=== PATIENT | male | born 1995 | race Caucasian/White ===

== ENCOUNTER 2020-10-18 22:20 | Inpatient (IN) | payer OTHER ==
[~2020-10-18] VITALS: Ht 182.9 cm; Wt 56.0 kg
[2020-10-18 22:37] VITALS: BP 114/78
[2020-10-19] VITALS (7 sets, daily range): BP systolic 100–113; BP diastolic 53–71
[2020-10-19 00:33] LABS: ABSOLUTE BASOPHILS 0.1 thou/uL (0.0-0.2); ABSOLUTE LYMPHOCYTES 2.1 thou/uL (0.8-5.3); ABSOLUTE MONOCYTES 0.9 thou/uL (0.0-1.2); ABSOLUTE NEUTROPHILS 12.9 thou/uL (1.6-8.1); BASOPHILS 0.5 %; EOSINOPHILS 0.1 %; HEMATOCRIT 30.4 % (42.0-52.0); HEMOGLOBIN 9.2 gm/dL (14.0-18.0); LYMPHOCYTES 13.2 %; MCH 20.4 pg (26.0-34.0); MCHC 30.1 g/dL (28.0-37.0); MCV 67.6 fL (80.0-100.0); MONOCYTES 5.7 %; MPV 6.9 fl. (7.2-11.1); NUCLEATED RBCS 0 /100WBC; POLYS 80.5 %; RBC 4.49 mil/uL (4.50-6.00); RDW-CV 19.5 % (10.5-14.5)
[2020-10-19 00:37] LABS: CALCIUM 10.1 mg/dL (8.5-10.1); CREATININE 0.9 mg/dL (0.6-1.3); POTASSIUM 3.8 mmol/L (3.5-5.1)
[2020-10-19 00:40] LABS: PLATELET COUNT* 976 thou/uL (150-400)
[2020-10-19 00:41] LABS: ALBUMIN 2.7 g/dL (3.4-5.0); TOTAL BILIRUBIN 0.3 mg/dL (<0.1-1.0); TOTAL PROTEIN 9.6 g/dL (6.4-8.2)
[2020-10-19 12:39] LABS: AMP/METHAMP Negative (Negative); BARBITURATES Negative (Negative); BENZODIAZEPINES Negative (Negative); COCAINE Negative (Negative); METHADONE Negative (Negative); OPIATES Negative (Negative); PCP Negative (Negative); THC POSITIVE (Negative)
--- NOTE | 2020-10-19 14:45 | NUR ---
ER ADMIT TO RM 210 VIA CART UP INDEP TELEPHONE REPORT GIVEN PRIOR TO ARRIVAL PATIENT C/O ABDOMEN PAIN 04/17 REFUSES MEDICATION ORIENTED TO RM AND CALL LIGHT
--- NOTE | 2020-10-20 04:45 | NUR ---
PATIENT HAS REMAINED ALERT AND ORIENTED X 4 THROUGHOUT THE SHIFT. UP INDEPENDENTLY IN ROOM. CONTINUES TO HAVE MULTIPLE LOOSE BM'S WITH CHROHN'S. MEDICATED FOR LEFT LEG PAIN X 2 THIS SHIFT TO GOOD EFFECT. IVF'S AND ANTIBIOTICS PER ORDER. VITAL SIGNS STABLE. CONTINUE TO MONITOR.
[2020-10-20 05:10] LABS: CALCIUM 8.4 mg/dL (8.5-10.1); CREATININE 0.7 mg/dL (0.6-1.3); POTASSIUM 3.5 mmol/L (3.5-5.1)
[2020-10-20 05:11] LABS: ABSOLUTE LYMPHOCYTES 0.7 thou/uL (0.8-5.3); ABSOLUTE MONOCYTES 0.6 thou/uL (0.0-1.2); ABSOLUTE NEUTROPHILS 7.3 thou/uL (1.6-8.1); BASOPHILS 0.4 %; EOSINOPHILS 0.5 %; HEMATOCRIT 23.7 % (42.0-52.0); HEMOGLOBIN 7.4 gm/dL (14.0-18.0); LYMPHOCYTES 8.1 %; MCHC 31.1 g/dL (28.0-37.0); MCV 67.6 fL (80.0-100.0); MONOCYTES 6.7 %; MPV 6.6 fl. (7.2-11.1); NUCLEATED RBCS 0 /100WBC; POLYS 84.3 %; RDW-CV 19.2 % (10.5-14.5); WBC 8.6 thou/uL (4.0-11.0)
[2020-10-20 05:13] LABS: PLATELET COUNT* 552 thou/uL (150-400)
[2020-10-20 06:56] LABS: PLATELET ESTIMATE ADEQUATE
--- NOTE | 2020-10-20 07:20 | NUR ---
CHANGE OF SHIFT BEDSIDE REPORT GIVEN PATIENT SEEN AT BESIDE, IN BED RESTING ASSUMED PATIENT CARE
[2020-10-20 08:00] VITALS: BP 98/52
[2020-10-20 12:00] VITALS: BP 103/63
[2020-10-20 16:00] VITALS: BP 97/58
--- NOTE | 2020-10-20 17:10 | NUR ---
ID CONSULT MADE AND DR JIMENEZ CALLED AND SAID SHE WILL BE OUT OF TOWN UNTIL 10/27/20 DR RAHMAN NOTIFIED IR CONSULT, ORDER FAXED TO IR DEPT SUN 10/20/20 OK TO SEE 10/21/20
[2020-10-20 20:35] VITALS: BP 103/62
[2020-10-21] VITALS (7 sets, daily range): BP systolic 90–119; BP diastolic 48–74
[2020-10-21 05:47] LABS: ABSOLUTE LYMPHOCYTES 0.7 thou/uL (0.8-5.3); ABSOLUTE MONOCYTES 0.6 thou/uL (0.0-1.2); ABSOLUTE NEUTROPHILS 6.2 thou/uL (1.6-8.1); BASOPHILS 0.2 %; EOSINOPHILS 0.6 %; HEMATOCRIT 24.1 % (42.0-52.0); HEMOGLOBIN 7.3 gm/dL (14.0-18.0); LYMPHOCYTES 9.2 %; MCH 20.8 pg (26.0-34.0); MCHC 30.3 g/dL (28.0-37.0); MCV 68.6 fL (80.0-100.0); MONOCYTES 8.1 %; MPV 5.8 fl. (7.2-11.1); NUCLEATED RBCS 0 /100WBC; POLYS 81.9 %; RDW-CV 19.7 % (10.5-14.5); WBC 7.5 thou/uL (4.0-11.0)
[2020-10-21 05:52] LABS: PLATELET COUNT* 477 thou/uL (150-400)
--- NOTE | 2020-10-21 06:10 | NUR ---
PATIENT HAS REMAINED ALERT AND ORIENTED X 4 THROUGHOUT THE SHIFT AND RESTING AT INTERVALS ON HOURLY ROUNDS. UP TO BR WITH STOOLS (CROHN'S). MEDICATED FOR LLE PAIN X 2. VITAL SIGNS STABLE. MEDS/ANTIBIOTICS PER ORDER. IR PROCEDURE TODAY PLANNED. CONTINUE TO MONITOR.
[2020-10-21 06:30] LABS: CALCIUM 7.9 mg/dL (8.5-10.1); CREATININE 0.8 mg/dL (0.6-1.3); POTASSIUM 3.8 mmol/L (3.5-5.1)
[2020-10-21 08:06] LABS: PLATELET ESTIMATE ADEQUATE
--- NOTE | 2020-10-21 13:04 | CON ---
[address] [address] CONSULTATION Name: MACKENZIE RDZ Room: [address] IN M.R.#: [id number] Admission: 10/19/20 Attend Phys: Indu Alva MD Discharge: Date of : 89 Report #: [id number] THIS REPORT FOR: cc: FAM - No family physician/PCP FAM - No family physician/PCP Alma Bryant MD ~ DATE OF CONSULTATION: 10/19/2020 REASON FOR CONSULTATION: History of Crohn's disease. HISTORY OF PRESENT ILLNESS: This is a 24-year-old male who reports that he has been diagnosed with Crohn's since 2 years ago. He had a colonoscopy last year ago. He has been followed at [facility], but reports that he was never started on any treatment for Crohn's. His doctors recently tried to start him on Remicade, but insurance company did not approve it. He is in the appeal process for Remicade. He has been having pain in the lower back, for which his primary doctor started him on pain medication on 10/01. Since the pain was getting worse, this prompted him to come to the hospital. Since hospitalization, he has had a CT of the abdomen and pelvis. There is gas in the soft tissue close to S3 level. MRI of the abdomen and pelvis is pending. The patient reports weight loss of 40 pounds over the last 2 years. His weight has been stable for the past couple of months. He reports anywhere from 5-6 bowel movements per day, which are loose to formed. He occasionally will have blood in his stool. He reports that he always has had thrombocytosis and he is somewhat anemic. He denies any upper GI symptoms as he denies nausea, vomiting, dyspepsia and dysphagia. PAST MEDICAL HISTORY: Significant for history of Crohn's disease, alpha 1 antitrypsin deficiency, lower back pain for which he was started on pain medication. ALLERGIES: No known drug allergy. MEDICATIONS: The patient is started on Flagyl and Cipro and then received a dose of Zosyn. SOCIAL HISTORY: The patient denies tobacco or alcohol use. He smokes marijuana. 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 FAMILY HISTORY: [place] [address] CONSULTATION Name: MACKENZIE RDZ Room: [address]#: [id number] Admission: 10/19/20 Attend Phys: Indu Alva MD Discharge: Date of : 89 Report #: [id number] PHYSICAL EXAMINATION: VITAL SIGNS: Reveals blood pressure of 100/57, respirations 22, pulse 76, temperature 97.6. LUNGS: Clear. CARDIOVASCULAR: Regular. ABDOMEN: Soft, nontender, nondistended. Bowel sounds are positive. NEUROLOGIC: The patient is alert and oriented x 3. There is no focal neurologic deficit. LABORATORY DATA: Reveal sodium of 137, potassium 3.8, BUN is 19, creatinine 0.9, glucose is 152, AST is 30, ALT 33, alkaline phosphatase is 229. Albumin is 2.7. WBC is 16, hemoglobin is 9.2 with platelets of 976. IMAGING: CT of abdomen and pelvis was obtained. This was significant for diffuse generalized dilatation and fluid-filled loops of both small and large bowel with mild wall thickening and enhancement throughout the bowel suggestive of diffuse inflammatory bowel disease. There is also gas along the anterior margin of L5 and S1 and also in the kamilla-sacral space and S3 level. ASSESSMENT AND PLAN: The patient with inflammatory bowel disease who usually follows in [place]. Unfortunately, he was not able to be started on Remicade as insurance company has refused it and he is waiting for a pill by his doctors at [facility]. He appears to have a kamilla-sacral abscess. He is currently on Zosyn. We will recommend to add Flagyl to this regimen. I will put him on Flagyl 500 mg IV q. 8 hours. MRI is pending to see if abscess involving the spine. We will consider Solu-Medrol 62.5 mg IV q. 8 hours once we review the MRI. <ELECTRONICALLY SIGNED> By: Alma Bryant MD 10/21/20 1304 [id number] Bryant MD /nt
--- NOTE | 2020-10-21 15:50 | NUR ---
Pt is A&O. Resides at home with friends. Independent and active. No DME. No hx of HH or SNF. 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 MARLA initiated the transfer, faxed referral to , images updated to the cloud. [facility] choice of facility would be [facility] . [facility] updated General Agent. Referral Packet in Pt's chart. p:[phone] f:[phone]
--- NOTE | 2020-10-21 20:29 | NUR ---
ASSUMED PT CARE AT 0730. PT IS A&OX4 COOPERATIVE AND FRIENDLY. ASSESSMENT COMPLETED. PT C/O PAIN THIS AFTERNOON AND PRN PAIN MED WAS GIVEN WITH EFFECTIVE RESULTS. PT UP AD BIANCA AND SHOWERED THIS AFTERNOON. SAFETY MEASURES VERBALIZED. MEDICATIONS ADMINISTERED ORDRED. PT TO TRANSFER TO PENDING BED AVAILABILITY FOR TX TO ABCESS NEAR LUMBAR SPINE.
[2020-10-22] VITALS (7 sets, daily range): BP systolic 101–112; BP diastolic 53–63
[2020-10-22 04:47] LABS: ABSOLUTE EOSINOPHILS 0.1 thou/uL (0.0-0.7); ABSOLUTE LYMPHOCYTES 0.8 thou/uL (0.8-5.3); ABSOLUTE MONOCYTES 0.6 thou/uL (0.0-1.2); ABSOLUTE NEUTROPHILS 7.2 thou/uL (1.6-8.1); BASOPHILS 0.5 %; HEMATOCRIT 25.3 % (42.0-52.0); HEMOGLOBIN 7.8 gm/dL (14.0-18.0); MCH 21.2 pg (26.0-34.0); MCHC 30.9 g/dL (28.0-37.0); MCV 68.6 fL (80.0-100.0); MONOCYTES 6.4 %; MPV 6.9 fl. (7.2-11.1); NUCLEATED RBCS 0 /100WBC; POLYS 83.1 %; RBC 3.68 mil/uL (4.50-6.00); RDW-CV 19.8 % (10.5-14.5); WBC 8.7 thou/uL (4.0-11.0)
--- NOTE | 2020-10-22 04:54 | NUR ---
PT A&O X 4. VSS ON RA. NORCO GIVEN X 1 FOR PAIN. SNACKS GIVEN PER PT REQUEST. UP INDEPENDENTLY IN ROOM. PT SLEPT MOST OF THE NIGHT. CALL LIGHT WITHIN REACH. WILL CONTINUE TO MONITOR.
[2020-10-22 05:00] LABS: PLATELET COUNT* 567 thou/uL (150-400)
[2020-10-22 05:18] LABS: CALCIUM 8.5 mg/dL (8.5-10.1); CREATININE 0.8 mg/dL (0.6-1.3); POTASSIUM 3.8 mmol/L (3.5-5.1); TOTAL BILIRUBIN 0.2 mg/dL (<0.1-1.0); TOTAL PROTEIN 7.6 g/dL (6.4-8.2)
[2020-10-22 06:23] LABS: PLATELET ESTIMATE INCREASED
[2020-10-22 06:24] LABS: ANISOCYTOSIS 2+; HYPOCHROMASIA 1+; MICROCYTES 1+; POIKILOCYTOSIS 1+
--- NOTE | 2020-10-22 14:59 | NUR ---
CM attempted to transfer Pt today: [facility]-remains at capacity, attempted transfer at 9am and 215pm, CM to try again tomorrow [facility]-all facilities at capacity. GI spoke with Dr Zulay Peralta to try and expediate getting Pt a bed, [facility] continues to be at capacity [facility]-took Pt's info, no beds, will contact CM if a bed becomes available [facility]-at capacity
--- NOTE | 2020-10-22 18:08 | NUR ---
[facility] AT 0730. PT IS A&OX4.ASSESSMENT COMPLETED, VSS PT REPORTED PAIN X1 THIS SHIFT, PAIN MEDICATION GIVEN WITH EFFECTIVE RESULTS. MEDICATIONS ADMINISTERED ORDERED. PT AWAITING TRANSFER TO FACILITY WHERE SURGERY CAN BE DONE FOR ABCESS NEXT TO LUMBAR SPINE. PT ON REG DIET AND EATING WELL. NO C/O WITH ELIMINATION. PT UP AD BIANCA TO BATHROOM.MOTHER HERE MOST OF THE DAY.
[2020-10-23 00:23] VITALS: BP 114/68
[2020-10-23 04:22] VITALS: BP 96/60
--- NOTE | 2020-10-23 05:58 | NUR ---
PT IS ABLE TO COMMUNICATE HIS NEEDS TO STAFF EFFECTIVELY. CURRENT PAIN MEDICATION HAS BEEN ADEQUATE FOR CONTROLLING HIS PAIN UP TO THIS TIME. AWAITING TRANSFER TO , OR ANOTHER FACILITY THAT IS QUALIFIED.
[2020-10-23 08:00] VITALS: BP 120/61
[2020-10-23 12:00] VITALS: BP 104/69
--- NOTE | 2020-10-23 14:17 | NUR ---
CM attempted to transfer Pt, all hospitals continue to be closed to transfers [facility] [place]'[facility] (all locations)
[2020-10-23 16:00] VITALS: BP 106/60
[2020-10-23 20:00] VITALS: BP 115/66
[2020-10-24] VITALS: BP 114/68
[2020-10-24 04:00] VITALS: BP 105/52; BP 158/115
[2020-10-24 04:08] LABS: ABSOLUTE EOSINOPHILS 0.1 thou/uL (0.0-0.7); ABSOLUTE MONOCYTES 0.6 thou/uL (0.0-1.2); ABSOLUTE NEUTROPHILS 7.1 thou/uL (1.6-8.1); BASOPHILS 0.2 %; EOSINOPHILS 1.5 %; HEMATOCRIT 28.4 % (42.0-52.0); HEMOGLOBIN 8.4 gm/dL (14.0-18.0); LYMPHOCYTES 10.9 %; MCH 20.5 pg (26.0-34.0); MCHC 29.7 g/dL (28.0-37.0); MCV 69.1 fL (80.0-100.0); MONOCYTES 7.1 %; MPV 6.2 fl. (7.2-11.1); NUCLEATED RBCS 0 /100WBC; PLATELET COUNT* 611 thou/uL (150-400); POLYS 80.3 %; RBC 4.12 mil/uL (4.50-6.00); RDW-CV 19.9 % (10.5-14.5); WBC 8.9 thou/uL (4.0-11.0)
[2020-10-24 04:32] LABS: ALBUMIN 2.4 g/dL (3.4-5.0); CALCIUM 8.8 mg/dL (8.5-10.1); CREATININE 0.8 mg/dL (0.6-1.3); POTASSIUM 3.7 mmol/L (3.5-5.1); TOTAL BILIRUBIN 0.2 mg/dL (<0.1-1.0); TOTAL PROTEIN 8.2 g/dL (6.4-8.2)
[2020-10-24 12:00] VITALS: BP 130/76
--- NOTE | 2020-10-24 12:59 | NUR ---
Anticipate dc in a few days, if Pt continues to be unable to transfer. Repeat scans today. ?if radiology can drain. Following
[2020-10-24 17:22] VITALS: BP 112/61
[2020-10-24 20:00] VITALS: BP 98/51
[2020-10-25] VITALS: BP 104/63
[2020-10-25 04:00] VITALS: BP 101/53
[2020-10-25 04:02] LABS: HEMATOCRIT 28.2 % (42.0-52.0); HEMOGLOBIN 8.4 gm/dL (14.0-18.0); MCH 20.6 pg (26.0-34.0); MCHC 29.9 g/dL (28.0-37.0); MCV 68.9 fL (80.0-100.0); MPV 6.2 fl. (7.2-11.1); RBC 4.1 mil/uL (4.50-6.00); RDW-CV 20.2 % (10.5-14.5); WBC 10.3 thou/uL (4.0-11.0)
[2020-10-25 04:21] LABS: PREALBUMIN 15.8 mg/dL (18.0-35.7)
[2020-10-25 04:23] LABS: ALBUMIN 2.5 g/dL (3.4-5.0); CALCIUM 8.9 mg/dL (8.5-10.1); CREATININE 0.9 mg/dL (0.6-1.3); MAGNESIUM 1.9 mg/dL (1.8-2.4); TOTAL BILIRUBIN 0.2 mg/dL (<0.1-1.0); TOTAL PROTEIN 8.3 g/dL (6.4-8.2)
--- NOTE | 2020-10-25 06:03 | NUR ---
ASSUMED PT CARE AT APPROX 1930. PT IS AWAKE AND ORIENTED X4. PT IS NOT IN DISTRESS, NO DESATURATIONS NOTED ON ROOM AIR. PT C/O LOWER BACK PAIN RELIVED BY PAIN MEDS GIVEN PER MAY. NO ACUTE CHANGES THIS SHIFT. CALL LIGHT WITHIN REACH. HOURLY ROUNDING DONE FOR PT SAFETY.
[2020-10-25 08:20] VITALS: BP 97/50
[2020-10-25 12:00] VITALS: BP 108/67
--- NOTE | 2020-10-25 14:50 | NUR ---
Area hospitals continue to be closed to transfers. CM contacted, [facility], [facility], [facility] and [facility]. Plan repeat cat scan today to see if IR can access the abscess.
[2020-10-25 16:00] VITALS: BP 105/65
--- NOTE | 2020-10-25 18:09 | NUR ---
PT CURRENLTY RESTING IN BED- TITLE CURATOR SR/ST- IV NOTED TO RIGHT FA INTACT, IV ABT INFUSSING PRESCIBED- GOOD PO INTAKE NOTED THIS SHIFT WITH MEALS- ABD/PELVIS COMPLETED THIS SHIFT ORDERED, RESULTS NOTED IN [facility]- HYDROCODONE X1 THIS SHIFT R/T LEFT HIP PAIN, REPORTED TO BE EFFECTIVE- PT UP AD-BIANCA IN ROOM, TOLERATING WELL- CALL LIGHT AND PERSONAL BELONGINGS WITH IN REACH- PT MAKES NEEDS KNOWN- ALL NEEDS MET AT THIS TIME
[2020-10-25 20:30] VITALS: BP 84/57
[2020-10-26 00:28] VITALS: BP 105/62
[2020-10-26 04:10] VITALS: BP 100/50
[2020-10-26 04:28] LABS: HEMATOCRIT 26.6 % (42.0-52.0); HEMOGLOBIN 7.9 gm/dL (14.0-18.0); MCH 20.4 pg (26.0-34.0); MCHC 29.7 g/dL (28.0-37.0); MCV 68.8 fL (80.0-100.0); MPV 6.4 fl. (7.2-11.1); RBC 3.86 mil/uL (4.50-6.00); RDW-CV 19.9 % (10.5-14.5); WBC 10.3 thou/uL (4.0-11.0)
--- NOTE | 2020-10-26 04:40 | NUR ---
UP AD BIANCA, ROOM AIR. NO REPORTS OF PAIN OR NAUSEA. RECEIVED MEDS SCHEDULED. NO WORSENING OF CONDITION REPORTED.
[2020-10-26 04:42] LABS: PREALBUMIN 15.5 mg/dL (18.0-35.7)
[2020-10-26 04:55] LABS: ALBUMIN 2.4 g/dL (3.4-5.0); CALCIUM 8.8 mg/dL (8.5-10.1); CREATININE 0.7 mg/dL (0.6-1.3); MAGNESIUM 1.8 mg/dL (1.8-2.4); POTASSIUM 3.8 mmol/L (3.5-5.1); TOTAL BILIRUBIN 0.2 mg/dL (<0.1-1.0); TOTAL PROTEIN 8.2 g/dL (6.4-8.2)
[2020-10-26 07:29] VITALS: BP 108/68
--- NOTE | 2020-10-26 09:08 | NUR ---
ASSUMED CARE OF PT THIS AM AROUND 0715- SAMPLE MAKER ORIGINAL IN PLACE ORDERED, TRACING SR- UPON ASSESSMENT PT NOTED TO BE RESTING IN BED, EYES CLOSED-PT A&O X4- CONT OF B/B- UP AD-BIANCA IN ROOM, STEADY GAIT NOTED- DIMINISHED LUNG SOUNDS- VSS, O2 SAT 99% ON RA- ABD SOFT/FLAT/NON-TENDER, BS X4 QUADS- BM REPORTED THIS AM- IV NOTED TO LUE INTACT, IV ABT INFUSSING THIS AM PRESCRIBED- PRN HYDROCODONE GIVEN THIS AM R/T C/O PAIN TO BACK- GI CONSULTED TO REE[facility] THIS AM- CALL LIGHT AND PERSONAL BELONGINGS WITH IN REACH- PT MAKES NEEDS KNOWN- ALL NEEDS MET AT THIS TIME
--- NOTE | 2020-10-26 10:07 | NUR ---
[facility] notified of need for a transfer for neurosurgery and colorectal surgery. all [facility] facilities in region are on diversion except for [facility]. dr. whatley notified and patient's rn.
[2020-10-26 15:01] VITALS: BP 97/67
[2020-10-26 19:21] VITALS: BP 134/65
[2020-10-27 00:45] VITALS: BP 111/56
[2020-10-27 04:03] LABS: HEMATOCRIT 26.2 % (42.0-52.0); HEMOGLOBIN 7.7 gm/dL (14.0-18.0); MCH 20.3 pg (26.0-34.0); MCHC 29.2 g/dL (28.0-37.0); MCV 69.4 fL (80.0-100.0); MPV 6.3 fl. (7.2-11.1); RBC 3.78 mil/uL (4.50-6.00); RDW-CV 20.2 % (10.5-14.5)
[2020-10-27 04:08] VITALS: BP 103/46
[2020-10-27 04:16] LABS: ALBUMIN 2.5 g/dL (3.4-5.0); CALCIUM 9.2 mg/dL (8.5-10.1); CREATININE 0.7 mg/dL (0.6-1.3); POTASSIUM 4.3 mmol/L (3.5-5.1); TOTAL BILIRUBIN 0.2 mg/dL (<0.1-1.0); TOTAL PROTEIN 8.2 g/dL (6.4-8.2)
--- NOTE | 2020-10-27 04:48 | NUR ---
PATIENT SLEPT WELL DURING THIS SHIFT. PT UP AD BIANCA IN HALLWAYS AND ROOMS. ANTIBIOTICS INFUSING PER DR ORDER. PT DENIES PAIN/NAUSEA AT THIS TIME. FREQUENTLY USED ITEMS AND CALL LIGHT WITHIN REACH. WILL CONTINUE TO MONITOR.
[2020-10-27 04:58] LABS: PREALBUMIN 16.4 mg/dL (18.0-35.7)
[2020-10-27 08:00] VITALS: BP 114/61
[2020-10-27 12:00] VITALS: BP 118/56
--- NOTE | 2020-10-27 17:37 | NUR ---
PATIENT RESTING IN BED EATING DINNER. C/O BACK PAIN. HYDROCODONE GIVEN X1. BLOOD SUGARS MONITORED. NO INSULIN NEEDED. IV TO LEFT UPPER ARM, SALINE LOCK, PATENT. BED IN LOW/LOCKED POSITION. CALL LIGHT WITHIN REACH. NO QUESTIONS OR CONCERNS VOICED.
[2020-10-27 18:25] VITALS: BP 126/78
[2020-10-27 20:49] VITALS: BP 115/71
[2020-10-28] VITALS: BP 107/60
[2020-10-28 03:44] LABS: HEMATOCRIT 26.9 % (42.0-52.0); HEMOGLOBIN 7.9 gm/dL (14.0-18.0); MCH 20.2 pg (26.0-34.0); MCHC 29.5 g/dL (28.0-37.0); MCV 68.6 fL (80.0-100.0); MPV 6.4 fl. (7.2-11.1); RBC 3.91 mil/uL (4.50-6.00); RDW-CV 19.9 % (10.5-14.5); WBC 16.7 thou/uL (4.0-11.0)
[2020-10-28 04:00] VITALS: BP 92/67
[2020-10-28 04:07] LABS: ALBUMIN 2.4 g/dL (3.4-5.0); CALCIUM 8.8 mg/dL (8.5-10.1); CREATININE 0.7 mg/dL (0.6-1.3); MAGNESIUM 1.9 mg/dL (1.8-2.4); POTASSIUM 4.4 mmol/L (3.5-5.1); TOTAL BILIRUBIN 0.1 mg/dL (<0.1-1.0); TOTAL PROTEIN 7.8 g/dL (6.4-8.2)
[2020-10-28 04:13] LABS: PREALBUMIN 18.8 mg/dL (18.0-35.7)
[2020-10-28 08:00] VITALS: BP 104/59
--- NOTE | 2020-10-28 08:51 | NUR ---
PT IS ABLE TO COMMUNICATE HIS NEEDS TO STAFF EFFECTIVELY. HE HAS DENIED THE NEED FOR PAIN MEDICATION UP TO 0700 THIS MORNING. GI AND ID FOLLOWING.
--- NOTE | 2020-10-28 12:58 | NUR ---
CM to continue to attempt to transfer Pt to a higher LOC. ID following, if transfer continues to not be an option, plan home with possible IVabx vs orals.
[2020-10-28 16:00] VITALS: BP 104/69
--- NOTE | 2020-10-28 18:41 | NUR ---
PATIENT RESTING IN BED. IV TO LEFT FOREARM, SALINE LOCKED. BLOOD SUGARS MONITORED. NO INSULIN GIVEN. ALERT AND ORIENTED X4. BED IN LOW/LOCKED POSITION. CALL LIGHT WITHIN REACH. ALL QUESTIONS AND CONCERNS ADDRESSED.
[2020-10-29 04:15] LABS: HEMATOCRIT 27.1 % (42.0-52.0); HEMOGLOBIN 8.2 gm/dL (14.0-18.0); MCH 20.7 pg (26.0-34.0); MCHC 30.2 g/dL (28.0-37.0); MCV 68.6 fL (80.0-100.0); MPV 6.5 fl. (7.2-11.1); NUCLEATED RBCS 0 /100WBC; PLATELET COUNT* 621 thou/uL (150-400); RBC 3.95 mil/uL (4.50-6.00); RDW-CV 19.9 % (10.5-14.5); WBC 13.8 thou/uL (4.0-11.0)
[2020-10-29 04:31] LABS: ALBUMIN 2.5 g/dL (3.4-5.0); CALCIUM 8.9 mg/dL (8.5-10.1); CREATININE 0.9 mg/dL (0.6-1.3); POTASSIUM 3.8 mmol/L (3.5-5.1); TOTAL BILIRUBIN 0.1 mg/dL (<0.1-1.0); TOTAL PROTEIN 7.5 g/dL (6.4-8.2)
--- NOTE | 2020-10-29 04:41 | NUR ---
PT SLEPT WELL DURING THIS SHIFT. PT UP AD BIANCA IN HALLWAY. PT WITH FLUIDS/ANTIBIOTICS INFUSING PER DR ORDER. PT REQUESTED HYDROCODONE 2 TABS AT HS. FREQUENTLY USED ITEMS AND CALL LIGHT WITHIN REACH. SIDERAILS UPX2. WILL CONTINUE TO MONITOR.
[2020-10-29 05:19] LABS: ABSOLUTE LYMPHOCYTES 0.7 thou/uL (0.8-5.3); ABSOLUTE MONOCYTES 0.1 thou/uL (0.0-1.2); HYPOCHROMASIA 2+; PLATELET ESTIMATE INCREASED
[2020-10-29 05:20] LABS: ANISOCYTOSIS 2+; MICROCYTES 2+; OVALOCYTES 1+; POIKILOCYTOSIS 1+
[2020-10-29 09:04] VITALS: BP 117/66
--- NOTE | 2020-10-29 13:34 | NUR ---
Pt to dc home today. CM faxed referral to [facility]. CM explained his benefit coverage to Pt and mom, Pt is responsible for $36.58/day until OOP of $2850 is met ($255.38 already met), once met Pt will be covered at 100%. Pt/mom voice that they are able to afford medication. [facility] to provide HH nurse, MARLA to fax HH orders. Picc to be placed today, CM will fax placement report once available. MRI planned for today. CM provided Pt's mom with a list of covered Neurosurgeons.
[2020-10-29] MEDS ORDERED: VITAMIN B-1100 M2 PO (13:56)
[2020-10-29] MEDS ORDERED: NORCO5 PO (13:56)
[2020-10-29] MEDS ORDERED: SUPER THERAVIT1 EACH PO (13:56)
[2020-10-29] MEDS ORDERED: FOLIC ACID1 MG PO (13:56)
[2020-10-29] MEDS ORDERED: FEROSUL325 M1 PO (13:56)
[2020-10-29 15:44] VITALS: BP 117/66
[2020-10-29 16:00] VITALS: BP 127/83
[2020-10-29 17:06] VITALS: BP 117/66
--- NOTE | 2020-10-29 17:18 | NUR ---
PT DISCHARGING HOME WITH HOMEHEALTH, PICC PLACED IN RIGHT UPPER ARM FOR ABT. PT A/OX4, UNDERSTANDS ALL DISCHARGE INSTRUCTIONS AND FOLLOW UP APPOINTMENTS. PT GOING HOME WITH HIS MOM VIA FAMILY CAR WALKED OUT BY STAFF AND ALL BELONGINGS WERE SENT WITH PATIENT
== END 2020-10-29 18:00 | disposition home health service (06) | DRG 871 ==
LOC: M.ERS 22:20 → M.TBA-ER 10-19 03:42 → M.2W 10-19 03:42
PROVIDERS: Emergency Medicine; Internal Medicine; Surgery; ADMIT Internal Medicine; ATTEND Internal Medicine
PROC: B548ZZA Ultrasonography of Superior Vena Cava, Guidance (ICD-10-PCS; principal; 2020-10-29)
PROC: 02HV33Z Insertion of Infusion Device into Superior Vena Cava, Percutaneous Approach (ICD-10-PCS; principal; 2020-10-29)
PROC: B5181ZA Fluoroscopy of Superior Vena Cava using Low Osmolar Contrast, Guidance (ICD-10-PCS; principal; 2020-10-29)
DX: A41.9 Sepsis, unspecified organism (principal); E43 Unspecified severe protein-calorie malnutrition; K50.114 Crohn's disease of large intestine with abscess; Z68.1 Body mass index [BMI] 19.9 or less, adult; M46.28 Osteomyelitis of vertebra, sacral and sacrococcygeal region; A18.01 Tuberculosis of spine; R63.4 Abnormal weight loss; D50.9 Iron deficiency anemia, unspecified; R73.9 Hyperglycemia, unspecified; Z20.822 Contact with and (suspected) exposure to COVID-19; T38.0X5A Adverse effect of glucocorticoids and synthetic analogues, initial encounter; Y92.89 Other specified places as the place of occurrence of the external cause